=== PATIENT | male | born 1995 | race Caucasian/White ===

== ENCOUNTER 2020-04-21 08:58 | Outpatient (CLI) | payer OTHER ==
--- NOTE | 2020-04-21 10:03 | SLEEP CARE CONSULTATION ---
Information from patient questionnaire entered by Alyssa Mejía. I have reviewed and concur with the information entered by Alyssa Mejía. This document represents the service I personally performed and the decisions made by me, Alba Youngblood ARNP. History of Present Illness Service Date and Time: 04/21/2020 0858 Reason for Visit: New patient Chief Complaint: reports: Unrefreshed sleep, Snoring, Excessive daytime sleepiness, Observed pauses in breathing, Frequent awakenings at night. denies: Insomnia, Fatigue Date of Onset: 1 + year Usual bedtime: 9-10 PM; 11 on weekends Time it takes to fall asleep: 30 min - 1 hour Snores at night: Yes Observed to quit breathing while asleep: Yes Sleeps alone due to snoring: Yes (sometimes) Number of times waking at night: 1-3 Reasons for waking at night: reports: Other (Not sure). denies: Choking, Snoring, Gasping for air Toss, Turn, or Twitch while sleeping: Yes Recalls having dreams: Yes Usually gets out of bed at: 6:30-6:40 AM; 9 am weekends Feels refreshed in the morning: No Morning headache: No Sleepy or fatigued during the day: Yes Ever fallen asleep while driving: No (no drowsy driving) Takes day naps: No Dreams during day naps: No Prior sleep studies: No Additional HPI information: I had the pleasure of seeing UVALDO AMADO today regarding the possibility of him having a sleep disorder. His current complaints are snoring, unrefreshed sleep, observed pauses in breathing, and frequent night awakenings. is concerned about pauses in breathing and loud snoring. His has had to sleep in another room due to snoring a couple times. He does not wake up feeling rested. He states he had some issues with high blood pressure in April last year but this has since improved over the year without medications or other interventions. His parents both snore but no diagnosed sleep apnea. He has had some labrum injuries in the past and is unable to sleep on his sides due to pain. His states he snores worse when he is sleeping on his back. - Parasomnia Symptoms Ever been unable to move upon waking from sleep: No Walks in sleep: Yes (couple times) Talks in sleep: Yes (couple times) Ever acted out dreams in sleep: Yes (can wake up "jolting", unsure of cause) Ever felt weak in the knees when startled or emotional: No Bothered by creepy, crawly, restless sensations in legs: No Problems with memory or concentration: Yes (both) Subjective Initial [place] Sleepiness Scale score: 9 (in 2020) Past Medical History Past Medical History: reports: Hypertension (last year, that has resolved), Other (sore throat when sleeps, did try omeprazole for 4 days without helps). 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 Patient is and lives in [place]. Have you smoked in the past 12 months: Yes Cigarettes per day (20/pack): 1 Years of smokin Quit date: 3 months ago Smoking Pack Years: 0 Alcohol use: Yes Alcohol amount and frequency: 3-4 twice a week; 4-5 beers on Sat/Fri night Caffeine use: Yes Caffeine amount and frequency: 1 a day; 2 on weekends Family History Family history of sleep disordered breathing: Yes (Dad and mom snore) Family Hx Sleep Apnea: Mother: Snoring, Father: Snoring Allergies and Home Medications Drug allergies reviewed: Yes (NKDA) Home medication list reviewed: Yes (no medications) Review of Systems Weight gain over past 5 years: 20 Cardiovascular: reports: high blood pressure, chest pain. denies: palpitations, irregular heart rate or pulse Respiratory: denies: shortness of breath Gastrointestinal: reports: heartburn, difficulty swallowing, other (sore throat at times) Urinary: denies: impotence Neurological: denies: headaches, seizure, head trauma, speech dysfunction, gait or balance problems Psychiatric: denies: Attention Deficit Hyperactivity, anxiety, depression, mood disorder, claustrophobia Ear/Nose/Throat: reports: nasal congestion, dry mouth/throat (wake up with dry throat), wisdom teeth removed. denies: sinus problems, nose bleeds, injury to nose, tonsillectomy Endocrine: denies: thyroid disease Musculoskeletal: denies: muscle pain or cramping, mobility problems Immunologic: denies: allergies to food or environment Physical Exam Blood Pressure: 121/82 Cuff size: wrist Heart Rate: 69 O2 Saturation: 98 Height: 6 ft 3 in Weight: 240 lb Body Mass Index: 29.9 BMI Classification: Overweight Neck circumference: 15.6 (inches) HEENT: No craniofacial malformation Nostrils: partially obstructed (right side) Turbinates: swollen Septum: midline Mouth and throat: narrow oropharynx Uvula visualization: 100% Mallampati Class I Tongue: normal in size Tonsils: 2+ Chin and jaw: normal size and position Neck: normal w/o lymphadenopathy or thyromegaly Heart: regular rate and rhythm Impression and Plan 1. Suspected Obstructive Sleep Apnea-Hypopnea Syndrome, as suggested by a history of loud and irregular snoring, observed cessation of breath while asleep , frequent awakening during the night, unrefreshed sleep, cognitive impairment, and excessive daytime sleepiness. I reviewed with patient that a narrow oropharynx and obesity are common predisposing factors for obstructive sleep apnea-hypopnea syndrome. I recommend proceeding to polysomnography to confirm the diagnosis and to assess severity. If the patient has significant sleep disordered breathing, a manual CPAP titration study will also be performed to find the optimal treatment pressure. I informed the patient of what the sleep studies involve and after some discussion, obtained agreement to proceed. The pathophysiology of obstructive sleep apnea-hypopnea syndrome was discussed with the patient and health risks of cardiovascular and cerebrovascular disease if not treated. AASM brochure for obstructive sleep apnea-hypopnea syndrome given and reviewed. Risks of drowsy driving discussed in detail and patient advised to avoid long distance driving and to puller out at the first sign of drowsiness. Patient agreed to plan. * Schedule polysomnography +- manual CPAP titration study. * Avoid long distance driving or driving when feeling sleepy. * Avoid alcohol, sedative and muscle relaxant around bedtime. * Attempt to lose weight. * Review instructions provided by trained office staff on how to prepare for the sleep study. * Return for follow-up after sleep study completed. Counseling Topics: Weight loss health impact Visit Type: In Office Provider Statement: I spent 100% of the Face to Face Visit with the patient with greater than 50% spent counseling the patient and coordination of care.
[2020-04-21 10:04] VITALS: BP 121/82
== END 2020-04-21 08:59 | disposition home or self-care (01) ==
LOC: SC 08:58
PROVIDERS: ATTEND Nurse Practitioner Family
DX: R06.83 Snoring (principal); G47.10 Hypersomnia, unspecified; G47.8 Other sleep disorders; R06.81 Apnea, not elsewhere classified; E66.3 Overweight; Z68.29 Body mass index [BMI] 29.0-29.9, adult
CPT/HCPCS: 99203; 99212

== ENCOUNTER 2020-06-20 19:33 | Outpatient (CLI) | payer OTHER | END 2020-06-20 19:34 | disposition home or self-care (01) | LOC: SC 19:33 | PROVIDERS: ATTEND Nurse Practitioner Family | DX: G47.31 Primary central sleep apnea (principal); G47.61 Periodic limb movement disorder; G47.63 Sleep related bruxism; E66.3 Overweight; Z68.30 Body mass index [BMI] 30.0-30.9, adult | CPT/HCPCS: 95810 ==

== ENCOUNTER 2020-06-29 09:09 | Outpatient (CLI) | payer OTHER ==
--- NOTE | 2020-06-29 09:22 | SLEEP CARE CONSULTATION ---
Information from patient questionnaire entered by Malathi Chun. I have reviewed and concur with the information entered by Malathi Chun. This document represents the service I personally performed and the decisions made by , Alba Youngblood ARNP. History of Present Illness Service Date and Time: 06/29/2020 0900 Initial [place] Sleepiness Scale score: 9 (in 2019) Current [place] Sleepiness Scale score: 9 Additional HPI information: UVALDO AMADO returns via Telehealth visit for follow up and results of the recently performed polysomnography. I explained the pathophysiology behind central sleep apnea. We then spent quite a bit of time discussing different treatment options. For mild obstructive sleep apnea, surgery and oral appliance are alternatives to nasal CPAP therapy but in moderate or severe cases, nasal CPAP is the most effective and reliable treatment. Because apnea is primarily in supine position, then positional management therapy could be effective. Methods discussed such as positioning with pillows, using a T-shirt with tennis balls in the back, and shown commercial products that have a pillow format on back to prevent supine sleep. I reviewed the impact of weight changes on sleep apnea and strongly recommended losing weight. After some discussion, the patient opted to have a manual titration study to find optimal pressure with office adjustments. Patient counseled not drink alcohol less than 4 hours before bedtime as it can increase snoring and apnea. Patient was cautioned about risks of drowsy driving until sleepiness symptoms resolve. Sleep Study - Results Type of Sleep Study: Polysomnography Prior sleep studies: No Polysomnography/Home Sleep Study results: IMPRESSION: The quality of the study is good. The patient had normal sleep efficiency. The sleep architecture was abnormal for sleep fragmentation and reduced amount of time spent in REM sleep. Respiratory monitoring showed moderate central sleep apnea-hypopnea (AHI = 16.3) associated with frequent arousals, oxyhemoglobin desaturation and mild hypoxia ([place] oxygen saturation of 87%). The respiratory events occurred almost exclusively during supine sleep (supine AHI = 36.0; non-supine = 4.10). Snore was moderate to loud in intensity. There was moderate periodic leg movement of sleep not contributing to the sleep fragmentation.. Cardiac rhythm was normal sinus rhythm without significant arrhythmia. The patient had bruxism. CONCLUSIONS and RECOMMENDATIONS: 1. The patient has moderate central sleep apnea-hypopnea. ICD-10 G47.31. Positive airway pressure therapy is indicated. The patient should return for a manual CPAP/BiPAP titration study. Common causes of central sleep apnea included congestive heart failure, SECURITY ASSURANCE SPECIALIST diseases, and opiate drugs. Central apneas can also be idiopathic or secondary to obstructive apneas which is probably the case here because of the respiratory events occurred predominantly during supine sleep. 2. Periodic leg movement (ICD G47.61), moderate, treatment may be indicated. Clinical correlation advised. 3. Bruxism (ICD-10 G47.63). Treatment as necessary. Allergies and Home Medications Drug allergies reviewed: Yes (NKDA) Home medication list reviewed: Yes (no changes) Review of Systems Review of systems same as previous: Yes (no changes) Physical Exam Vital signs obtained and entered by: Telehealth visit to reduce exposure during Covid pandemic Height: 6 ft 3 in Impression and Plan 1. Central Sleep Apnea-Hypopnea Syndrome, moderate, with lowest oxygen saturation of 87. Obviously this is the cause of the patients symptoms of unrefreshed sleep, and excessive daytime sleepiness. Positive pressure therapy could benefit his overall health and reduce cerebrovascular and cardiovascular adverse events. Because the apnea is more severe supine, I instructed to avoid sleeping supine using pillow positioning until able to start CPAP use. 2. Periodic limb movement, moderate, that did not fragment patients sleep. Periodic limb movement of sleep (PLMS) is characterized by episodes of repetitive limb movements that occur during sleep and usually involve the lower limbs. The etiology is unknown but can be associated with restless leg syndrome (RLS), neuropathy, spinal cord diseases, kidney disease, rheumatological disorders, narcolepsy, obstructive sleep apnea, and REM sleep behavior disorder. Other factors that can increase PLMS and/or RLS are heredity and iron deficiency as reflected by a low serum ferritin level below 50 to 75mcg / L. Several medications can precipitate or aggravate PLMS such as selective serotonin re- uptake inhibitor antidepressants, tricyclic antidepressants, lithium, and dopam ine receptor antagonists with the exception of bupropion. Caffeine can also aggravate PLMS and should be avoided. Sleep hygiene methods can also improve sleep as well as lifestyle changes such as regular exercise. Patient was advised that no treatment is needed at this time. If symptoms increase, then further evaluation is indicated. 3. Bruxism. Patient advised to follow up with a dentist for his bruxism. * Titration study * Follow up with dentist as needed for bruxism. * Avoid alcohol consumption near bedtime. * Avoid supine sleep until using CPAP. * The patient is again cautioned about driving until sleepiness completely resolves. * Return after titration study to get set up on recommended therapy. Visit Type: Telehealth Video Video Type: Doximity Patient Location: Home Location of Provider: Office Patient agrees and consents to this telehealth visit type: Yes Patient agrees to have their insurance billed: Yes Time Spent with Patient (minutes): 22 Provider Statement: I spent 100% of the Telehealth Video Call with the patient with greater than 50% spent counseling the patient and coordination of care.
== END 2020-06-29 09:10 | disposition home or self-care (01) ==
LOC: SC 09:09
PROVIDERS: ATTEND Nurse Practitioner Family
DX: G47.31 Primary central sleep apnea (principal); G47.61 Periodic limb movement disorder; G47.63 Sleep related bruxism

== ENCOUNTER 2020-07-29 15:00 | Outpatient (CLI) | payer OTHER | END 2020-07-29 15:01 | disposition home or self-care (01) | LOC: LAB.N 15:00 | PROVIDERS: ATTEND Nurse Practitioner Family | DX: Z20.822 Contact with and (suspected) exposure to COVID-19 (principal) ==

== ENCOUNTER 2020-08-01 20:18 | Outpatient (CLI) | payer OTHER | END 2020-08-01 20:19 | disposition home or self-care (01) | LOC: SC 20:18 | PROVIDERS: ATTEND Nurse Practitioner Family | DX: G47.33 Obstructive sleep apnea (adult) (pediatric) (principal); E66.9 Obesity, unspecified; Z68.30 Body mass index [BMI] 30.0-30.9, adult | CPT/HCPCS: 95811 ==

== ENCOUNTER 2020-08-19 14:00 | Outpatient (CLI) | payer OTHER ==
--- NOTE | 2020-08-19 14:23 | SLEEP CARE CONSULTATION ---
Information from patient questionnaire entered by Malathi Chun. I have reviewed and concur with the information entered by Malathi Chun. This document represents the service I personally performed and the decisions made by , Alba Youngblood ARNP. History of Present Illness Service Date and Time: 08/19/2020 1400 Initial [place] Sleepiness Scale score: 9 (in 2019) Current [place] Sleepiness Scale score: 14 Additional HPI information: UVALDO AMADO returns via Telehealth visit for follow up of the sleep study with a manual CPAP titration study performed on 08/01/2020. The patient was informed of the following polysomnography findings: Patient has moderate central sleep apnea with an average AHI of 16.3. He completed titration study and I explained that the optimal CPAP pressure is 4 cmH2O or 4-8 cmH2O. Sleep Study - Results Type of Sleep Study: Polysomnography (titration) Prior sleep studies: No Polysomnography/Home Sleep Study results: IMPRESSION: The quality of the study is good. CPAP was initiated at 4 cmH2O and titrated up to CPAP at 7 cmH2O. CPAP at 4 cmH2O appeared to be optimal (AHI of 2.4 per hour on the pressure). There was supine REM sleep on the pressure. Oxygen saturation was normal throughout the night. The patient appeared to have tolerated positive airway pressure therapy fairly well. The patients sleep efficiency was slightly reduced. The sleep architecture was normal. There was mild periodic leg movement of sleep not associated with sleep fragmentation. Cardiac rhythm was normal sinus rhythm with occasional premature ventricular contractions. No abnormal behavior (parasomnia) observed during the night. CONCLUSIONS and RECOMMENDATIONS: 1. Obstructive sleep apnea-hypopnea (ICD-10 G47.33), moderate (AHI was 16.3), adequately controlled with CPAP at 4 cmH2O. CPAP therapy is, therefore, recommended at the pressure setting. AutoCPAP set between 4 and 8 cmH20 is also appropriate. Mask used was a Respironics Nuance nasal pillows size medium. With BMI of 30.0 Kg/M2, weight loss is also recommended. 2. Periodic leg movement (ICD G47.61), mild, treatment may be indicated. Clinical correlation advised. Allergies and Home Medications Home medication list reviewed: Yes (no changes) Review of Systems Review of systems same as previous: Yes (no changes) Physical Exam Vital signs obtained and entered by: Telehealth visit to reduce exposure during Covid pandemic Height: 6 ft 3 in Impression and Plan 1. Central Sleep Apnea-Hypopnea Syndrome, moderate, with optimal titration pressure found to be 4 cmH2O or 4-8 cmH2O also appropriate. Patient would like to move forward with CPAP therapy. The patient will be started on nasal autoCPAP therapy with pressure set at 4-8 cmH2O. Compliance guidelines also reviewed. A copy of compliance guidelines will be given for reference at check out. Because the apnea is more severe supine, I instructed to avoid sleeping supine using pillow positioning until able to start CPAP use. He is being transferred to [facility] and we will have to try to connect him to a [facility] close to him there for him to get started since he is leaving today to go there. 2. Periodic limb movement, mild, that did not fragment patients sleep. Periodic limb movement of sleep (PLMS) is characterized by episodes of repetitive limb movements that occur during sleep and usually involve the lower limbs. Patient was advised that no treatment is needed at this time. If symptoms increase, then further evaluation is indicated. * Nasal auto CPAP therapy, pressure at 4-8 cm H2O. * Avoid alcohol consumption near bedtime. * Avoid supine sleep until using CPAP. * The patient is again cautioned about driving until sleepiness completely resolves. * Return one month after CPAP obtained. I will assess response to therapy and compliance at that time. Visit Type: Telehealth Video Video Type: VSee Patient Location: Home Location of Provider: Office Patient agrees and consents to this telehealth visit type: Yes Patient agrees to have their insurance billed: Yes Time Spent with Patient (minutes): 21 Provider Statement: I spent 100% of the Telehealth Video Call with the patient with greater than 50% spent counseling the patient and coordination of care.
== END 2020-08-19 14:01 | disposition home or self-care (01) ==
LOC: SC 14:00
PROVIDERS: ATTEND Nurse Practitioner Family
DX: G47.31 Primary central sleep apnea (principal); G47.61 Periodic limb movement disorder